=== PATIENT | female | born 1985 | race African-American/Black ===

== ENCOUNTER 2017-04-28 12:36 | Emergency (ER) | payer OTHER ==
--- NOTE | ~2017-04-28 | CR170 ---
[facility]. [facility] A Service of [facility] & [facility] RADIOLOGY TEXT RESULTS PATIENT: KATY CASAREZ LOCATION: SED : 83 UNIT #: [id number] AGE: [address]: NADIRA VILLAGOMEZ SEX: F ORDER DR: [id number] [address] [address] [id number] MR#: [id number] Acc #: [id number] NAME: KATY CASAREZ : 1985 SEX: F STUDY DATE/TIME: 04/28/2017 14:05 UNIT: SED ROOM: STUDY DESCRIPTION: CR Knee 2 Views Rt Attending Physician: Nadira Villagomez Aprn Ordering Physician: Nadira Villagomez Aprn Primary Care Physician: No Primary Care Physician MEDICAL IMAGING REPORT This report is preliminary unless electronic signature is present. EXAM Right knee, 2 views, 04/28/2017. HISTORY Right knee pain, status post fall after blackening out 3 days ago. FINDINGS AP and lateral projection of the knee shows smooth articular anatomy without indication of fracture or dislocation at the major weight-bearing surface of the knee. There is no indication of radiopaque foreign body about the knee surface or joint effusion. IMPRESSION Normal right knee. Dictated by... Missael Persaud M.D. THIS IS AN ELECTRONICALLY VERIFIED REPORT Missael Persaud M.D. at 04/29/2017 2:13 PM NELIDA/atul TD: 04/28/2017 23:32 JOB #: [id number] MEDICAL IMAGING REPORT Page 1 of 1
--- NOTE | ~2017-04-28 | EKG ---
PATIENT: KATY CASAREZ UNIT #: [id number] Ventricular Rate: 65 BPM Atrial Rate: 65 BPM P-R Interval: 174 ms QRS Duration: 90 ms Q-T Interval: 400 ms QTC Calculation(Bezet): 416 ms P [place]: 49 degrees Calculated R [place]: 33 degrees Calculated T [place]: 30 degrees Diagnosis Line: Normal sinus rhythm Diagnosis Line: Normal ECG Diagnosis Line: No previous ECGs available Diagnosis Line: Confirmed by BRAYAN PEPPER MD ([id number]) on Diagnosis Line: 04/30/2017 11:03:31 AM INTERPRETING MD: SHANTELLE CHAN
[~2017-04-28 12:36] MED LIST: ALBUTEROL17 GM INH; BACITRACIN OP3.5 GM OS; BACTRIM DS TABL1 TA1 DOB; BACTRIM DS TABL1 TA1 PO; CIPRO PO; EYE WASH IRRIG; FLAGYL PO; FLEXERIL PO; IBUPROFEN800 MG PO; ILOTYCIN; NO MEDICATIONS; NORCO 5/325 TAB1 TAB PO; PREDNISONE PO; ROBAXIN500 MG PO; VICODIN 5/500 T1 TAB PO; VOLTAREN50 MG PO; ZOFRAN ODT4 MG PO
== END 2017-04-28 15:05 | disposition home or self-care (01) ==
LOC: SED 12:36
DX: S80.01XA Contusion of right knee, initial encounter (principal); W18.30XA Fall on same level, unspecified, initial encounter; Y92.89 Other specified places as the place of occurrence of the external cause
CPT/HCPCS: 29530; 73560; 82947; 84703; 93005; 99284